=== PATIENT | female | born 1940 | race Caucasian/White ===

== ENCOUNTER 2020-09-29 22:35 | Emergency (ER) | payer MEDICARE, OTHER ==
[~2020-09-29] VITALS: Ht 157.5 cm; Wt 113.6 kg
[2020-09-29] MEDS ORDERED: ONDANSETRON HCL 4 MG/2 ML VIAL IVP ONE (23:45)
[2020-09-29] MEDS ORDERED: ACETAMINOPHEN 500 MG TABLET PO ONE (23:45)
[2020-09-29] MEDS ORDERED: 0.9% SODIUM CHLORIDE 10 ML SYRINGE IVP PRN (23:45)
[2020-09-30 00:28] LABS: APPEARANCE,URINE TURBID (CLEAR); BILIRUBIN,URINE NEGATIVE (NEGATIVE); GLUCOSE, URINE (UA) NEGATIVE (NEGATIVE); KETONES,URINE NEGATIVE (NEGATIVE); LEUKOCYTE ESTERASE ,URINE MODERATE (NEGATIVE); NITRATE,URINE NEGATIVE (NEGATIVE); OCCULT BLOOD,URINE NEGATIVE (NEGATIVE); PH,URINE 8.5 (5.0-8.0); PROTEIN,URINE SEE CONFIRM (NEGATIVE); UROBILINOGEN,URINE 0.2 mg/dL (<=1.0)
[2020-09-30 00:42] LABS: COVID AG,FIA SOURCE NASOPHARYNGEAL
[2020-09-30 00:48] LABS: BASOPHILS % (AUTO) 0.6 % (0.0-2.0); EOSINOPHILS % (AUTO) 0.8 % (1.0-6.0); HEMATOCRIT 35.8 % (36-46); HEMOGLOBIN 11.6 g/dL (12.0-16.0); LYMPHOCYTES # (AUTO) 1.2 K/uL (1.0-4.8); LYMPHOCYTES % (AUTO) 12.3 % (22.0-44.0); MEAN CORPUSCULAR HEMOGLOBIN 31.4 pg (26.0-34.0); MEAN CORPUSCULAR HGB CONC 32.3 G/dL (31.0-37.0); MEAN CORPUSCULAR VOLUME 97 fL (80-100); MONOCYTES # (AUTO) 0.5 K/uL (0.1-1.0); MONOCYTES % (AUTO) 4.7 % (2.0-9.0); NEUTROPHILS # (AUTO) 7.9 K/uL (1.8-7.7); NEUTROPHILS % (AUTO) 81.6 % (40.0-70.0); PLATELET COUNT (AUTO) 121 K/uL (150-450); RED BLOOD CELL COUNT(AUTO) 3.68 MIL/uL (4.00-5.20); RED CELL DISTRIBUTION WIDTH 16.6 % (11.5-14.5)
[2020-09-30 00:49] LABS: RBC,URINE None Seen /HPF (0-2); SULFOSALICYLIC ACID,URINE 4+ (Negative)
[2020-09-30 00:50] LABS: BACTERIA,URINE Many /HPF (None Seen); CALCIUM OXALATE CRYSTALS,UR Moderate /LPF (None Seen); SQUAMOUS EPITHELIAL CELL,UR Many /LPF (None Seen)
[2020-09-30 01:15] LABS: CALCIUM, TOTAL 9.1 mg/dL (8.8-10.5); CREATININE 2.89 mg/dL (0.60-1.30); POTASSIUM 4.7 mmol/L (3.5-5.1)
[2020-09-30 01:19] LABS: ALBUMIN 3.5 g/dL (3.4-5.0); BILIRUBIN,TOTAL 0.4 mg/dL (0.1-1.0); TOTAL PROTEIN, SERUM 7.6 g/dL (6.4-8.2)
[2020-09-30 01:22] LABS: LACTIC ACID 1.2 mmol/L (0.4-2.0)
[2020-09-30 01:34] LABS: INR 0.9 (0.9-1.1); PROTHROMBIN TIME 10.1 SEC (9.4-11.6)
[2020-09-30 01:37] VITALS: BP 146/68
[2020-09-30] MEDS ORDERED: DiphenhydrAMINE HCL 50 MG/ML VIAL IVP STA (01:45)
[2020-09-30] MEDS ORDERED: METOCLOPRAMIDE HCL 5 MG/ML 2 ML VIAL IVP ONE (01:45)
[2020-09-30] MEDS ORDERED: KETOROLAC TROMETHAMINE 30 MG/ML VIAL IVP ONE (01:45)
[2020-09-30] MEDS ORDERED: CEPHALEXIN MONOHYDRATE 500 MG CAPSULE PO ONE (02:00)
== END 2020-09-30 01:50 | disposition home or self-care (01) ==
LOC: EMS 22:35
DX: N39.0 Urinary tract infection, site not specified (principal); R79.1 Abnormal coagulation profile; R51.9 Headache, unspecified; Z20.822 Contact with and (suspected) exposure to COVID-19
CPT/HCPCS: 36415; 70450; 71045; 80053; 81001; 83605; 85025; 85610; 87040; 87077; 87086; 87186; 87205; 87426; 93005; 96374; 96375; 99285; J1200; J1885; J2405; J2765; 81002

== ENCOUNTER 2021-05-21 10:17 | Emergency (ER) | payer MEDICARE, OTHER ==
[~2021-05-21] VITALS: Ht 160 cm; Wt 106.2 kg
[~2021-05-21 10:17] MED LIST: AMLO2.5T96 PO; ASPI-1450 PO; BUME1TAB34 PO; ZINC113C10 TP
[2021-05-21 10:58] LABS: BASOPHILS % (AUTO) 1.4 % (0.0-2.0); HEMATOCRIT 40.2 % (36-46); HEMOGLOBIN 13.3 g/dL (12.0-16.0); LYMPHOCYTES # (AUTO) 1.1 K/uL (1.0-4.8); LYMPHOCYTES % (AUTO) 21.1 % (22.0-44.0); MEAN CORPUSCULAR VOLUME 100 fL (80-100); MONOCYTES # (AUTO) 0.4 K/uL (0.1-1.0); MONOCYTES % (AUTO) 6.7 % (2.0-9.0); NEUTROPHILS # (AUTO) 3.8 K/uL (1.8-7.7); NEUTROPHILS % (AUTO) 69.8 % (40.0-70.0); PLATELET COUNT (AUTO) 113 K/uL (150-450); RED BLOOD CELL COUNT(AUTO) 4.02 MIL/uL (4.00-5.20); RED CELL DISTRIBUTION WIDTH 18.8 % (11.5-14.5)
[2021-05-21 11:10] LABS: CALCIUM, TOTAL 9.6 mg/dL (8.8-10.5); CREATININE 3.76 mg/dL (0.60-1.30); POTASSIUM 4.4 mmol/L (3.5-5.1)
[2021-05-21 11:28] LABS: ALBUMIN 3.8 g/dL (3.4-5.0); BILIRUBIN,TOTAL 0.5 mg/dL (0.1-1.0); TOTAL PROTEIN, SERUM 7.9 g/dL (6.4-8.2)
[2021-05-21 16:30] VITALS: BP 117/56
== END 2021-05-21 17:01 | disposition home or self-care (01) ==
LOC: EMS 10:17
DX: R53.1 Weakness (principal); I13.2 Hypertensive heart and chronic kidney disease with heart failure and with stage 5 chronic kidney disease, or end stage renal disease; N18.6 End stage renal disease; I50.9 Heart failure, unspecified; Z99.2 Dependence on renal dialysis; Z79.899 Other long term (current) drug therapy
CPT/HCPCS: 71045; 80053; 84484; 85025; 93005; 99285; 36415-L1; 36415-TC

== ENCOUNTER 2021-08-14 10:10 | Inpatient (IN) | payer MEDICARE, OTHER ==
[2021-08-14] VITALS (11 sets, daily range): BP systolic 134–171; BP diastolic 60–90
[~2021-08-14] VITALS: Ht 154.9 cm; Wt 120.1 kg
[2021-08-14] MEDS ORDERED: ONDANSETRON HCL 4 MG/2 ML VIAL IVP PRN (10:45)
[2021-08-14 11:04] LABS: BASOPHILS % (AUTO) 0.6 % (0.0-2.0); EOSINOPHILS % (AUTO) 1.8 % (1.0-6.0); HEMATOCRIT 33.4 % (36-46); HEMOGLOBIN 11.2 g/dL (12.0-16.0); LYMPHOCYTES % (AUTO) 15.7 % (22.0-44.0); MEAN CORPUSCULAR HEMOGLOBIN 31.7 pg (26.0-34.0); MEAN CORPUSCULAR HGB CONC 33.5 G/dL (31.0-37.0); MEAN CORPUSCULAR VOLUME 95 fL (80-100); MONOCYTES # (AUTO) 0.6 K/uL (0.1-1.0); MONOCYTES % (AUTO) 9.8 % (2.0-9.0); NEUTROPHILS # (AUTO) 4.4 K/uL (1.8-7.7); NEUTROPHILS % (AUTO) 72.1 % (40.0-70.0); PLATELET COUNT (AUTO) 207 K/uL (150-450); RED BLOOD CELL COUNT(AUTO) 3.53 MIL/uL (4.00-5.20); RED CELL DISTRIBUTION WIDTH 16.4 % (11.5-14.5)
[2021-08-14 11:16] LABS: PROTHROMBIN TIME 10.3 SEC (9.4-11.6)
[2021-08-14 11:26] LABS: CREATININE 4.57 mg/dL (0.60-1.30)
[2021-08-14 11:30] LABS: ALBUMIN 3.3 g/dL (3.4-5.0); BILIRUBIN,TOTAL 0.6 mg/dL (0.1-1.0); TOTAL PROTEIN, SERUM 7.4 g/dL (6.4-8.2)
[2021-08-14] MEDS ORDERED: ASPIRIN 325 MG TABLET PO ONE (11:45)
[2021-08-14] MEDS ORDERED: HEPARIN SODIUM,PORCINE 1,000 UNITS/ML VIAL IVP ONE (12:00)
[2021-08-14 12:12] LABS: COVID AG,FIA SOURCE NASAL SWAB
[2021-08-14 12:43] LABS: INFLUENZA TYPE A NEGATIVE FOR TYPE A (NEGATIVE); INFLUENZA TYPE B NEGATIVE FOR TYPE B (NEGATIVE)
[2021-08-14] MEDS ORDERED: PNEUMOCOCCAL VACCINE POLYVALENT 0.5 ML VIAL [PPSV23] IM. ONE (14:45)
[2021-08-14] MEDS ORDERED: SODIUM CHLORIDE 0.9% 1,000 ML ONE (16:19)
[2021-08-14] MEDS: HEPARIN SODIUM,PORCINE 5,000 UNITS/ML VIAL SQ SCH ×2 (16:43→23:27)
[2021-08-14] MEDS: OxyCODONE HCL/ACETAMINOPHEN 5-325 MG TABLET PO PRN (18:25)
[2021-08-14] MEDS ORDERED: HEPARIN SODIUM,PORCINE 1,000 UNITS/ML VIAL IVCATH ONE ×2 (20:45)
[2021-08-14] MEDS: DOCUSATE SODIUM 100 MG CAPSULE PO SCH (21:00)
[2021-08-15 00:05] VITALS: BP 139/70
[2021-08-15 03:55] VITALS: BP 126/66
[2021-08-15 08:12] VITALS: BP 134/78
[2021-08-15] MEDS: FAMOTIDINE 20 MG TABLET PO SCH (09:38)
[2021-08-15] MEDS: OxyCODONE HCL/ACETAMINOPHEN 5-325 MG TABLET PO PRN (09:38)
[2021-08-15] MEDS: ASPIRIN 81 MG CHEWABLE TABLET PO SCH (09:38)
[2021-08-15] MEDS: VITAMIN B COMP/VIT C/FOLIC ACID CAPSULE PO SCH (09:38)
[2021-08-15] MEDS: AmLODIPine BESYLATE 5 MG TABLET PO SCH (09:38)
[2021-08-15] MEDS: DOCUSATE SODIUM 100 MG CAPSULE PO SCH ×2 (09:38→20:48)
[2021-08-15] MEDS: HEPARIN SODIUM,PORCINE 5,000 UNITS/ML VIAL SQ SCH ×3 (09:39→23:17)
[2021-08-15 11:59] VITALS: BP 130/81
[2021-08-15 15:36] VITALS: BP 147/76
[2021-08-15] MEDS: SEVELAMER CARBONATE 800 MG TABLET PO SCH (17:44)
[2021-08-15] MEDS: ACETAMINOPHEN 325 MG TABLET PO PRN (17:51)
[2021-08-15 20:45] VITALS: BP 124/78
[2021-08-16 01:01] VITALS: BP 135/76
[2021-08-16 05:34] VITALS: BP 159/98
[2021-08-16 08:19] VITALS: BP 146/96
[2021-08-16] MEDS: SEVELAMER CARBONATE 800 MG TABLET PO SCH ×3 (08:32→18:16)
[2021-08-16] MEDS: HEPARIN SODIUM,PORCINE 5,000 UNITS/ML VIAL SQ SCH ×2 (08:32→15:36)
[2021-08-16] MEDS: FAMOTIDINE 20 MG TABLET PO SCH (08:33)
[2021-08-16] MEDS: VITAMIN B COMP/VIT C/FOLIC ACID CAPSULE PO SCH (08:33)
[2021-08-16] MEDS: ASPIRIN 81 MG CHEWABLE TABLET PO SCH (08:33)
[2021-08-16] MEDS: AmLODIPine BESYLATE 5 MG TABLET PO SCH (08:33)
[2021-08-16] MEDS: DOCUSATE SODIUM 100 MG CAPSULE PO SCH (08:33)
[2021-08-16] MEDS: ACETAMINOPHEN 325 MG TABLET PO PRN ×2 (10:12→18:23)
[2021-08-16 11:24] VITALS: BP 160/77
[2021-08-16 11:52] VITALS: BP 112/90
[2021-08-16 17:04] VITALS: BP 131/77
== END 2021-08-16 19:50 | disposition home health service (06) | DRG 291 ==
LOC: EMS 10:13 → 5S 12:00
PROVIDERS: ADMIT Internal Medicine; ATTEND Internal Medicine
PROC: 5A1D70Z Performance of Urinary Filtration, Intermittent, Less than 6 Hours Per Day (ICD-10-PCS; principal; 2021-08-14)
PROC: 5A09357 Assistance with Respiratory Ventilation, Less than 24 Consecutive Hours, Continuous Positive Airway Pressure (ICD-10-PCS; 2021-08-15)
DX: I13.2 Hypertensive heart and chronic kidney disease with heart failure and with stage 5 chronic kidney disease, or end stage renal disease (principal); N18.6 End stage renal disease; Z68.43 Body mass index [BMI] 50.0-59.9, adult; E44.0 Moderate protein-calorie malnutrition; E66.2 Morbid (severe) obesity with alveolar hypoventilation; F44.4 Conversion disorder with motor symptom or deficit; Z20.822 Contact with and (suspected) exposure to COVID-19; E21.3 Hyperparathyroidism, unspecified; I50.9 Heart failure, unspecified; D63.1 Anemia in chronic kidney disease; Z28.310 Unvaccinated for COVID-19; Z99.2 Dependence on renal dialysis; Z95.3 Presence of xenogenic heart valve; Z90.710 Acquired absence of both cervix and uterus; Z79.899 Other long term (current) drug therapy
CPT/HCPCS: 71045; 80053; 83605; 83880; 84484; 85025; 85610; 85730; 87081; 87340; 87804; 90935; 93005; 94660; 99285; G0378; J1644; J7030

== ENCOUNTER 2021-11-30 09:39 | Emergency (ER) | payer MEDICARE, OTHER ==
[~2021-11-30] VITALS: Ht 157.5 cm; Wt 135.2 kg
[2021-11-30 10:30] LABS: EOSINOPHILS % (AUTO) 2.8 % (1.0-6.0); HEMATOCRIT 34.3 % (36-46); HEMOGLOBIN 11.5 g/dL (12.0-16.0); LYMPHOCYTES # (AUTO) 0.8 K/uL (1.0-4.8); LYMPHOCYTES % (AUTO) 13.5 % (22.0-44.0); MEAN CORPUSCULAR HEMOGLOBIN 31.4 pg (26.0-34.0); MEAN CORPUSCULAR HGB CONC 33.5 G/dL (31.0-37.0); MEAN CORPUSCULAR VOLUME 94 fL (80-100); MONOCYTES # (AUTO) 0.4 K/uL (0.1-1.0); MONOCYTES % (AUTO) 6.9 % (2.0-9.0); NEUTROPHILS # (AUTO) 4.7 K/uL (1.8-7.7); NEUTROPHILS % (AUTO) 75.8 % (40.0-70.0); PLATELET COUNT (AUTO) 192 K/uL (150-450); RED BLOOD CELL COUNT(AUTO) 3.66 MIL/uL (4.00-5.20); RED CELL DISTRIBUTION WIDTH 16.9 % (11.5-14.5)
[2021-11-30 10:40] LABS: CREATININE 5.6 mg/dL (0.60-1.30); POTASSIUM 5.3 mmol/L (3.5-5.1)
[2021-11-30] MEDS ORDERED: LEVO25TA9 PO (10:56)
[2021-11-30] MEDS ORDERED: FURO40TA5 PO (10:56)
[2021-11-30] MEDS ORDERED: METO-558 PO (10:56)
[2021-11-30] MEDS ORDERED: AMLO10TA55 PO (10:56)
[2021-11-30] MEDS ORDERED: ROPI0.257 PO (10:56)
[2021-11-30] MEDS ORDERED: METO25XL PO (10:56)
[2021-11-30] MEDS ORDERED: ALLO100T PO (10:56)
[2021-11-30] MEDS ORDERED: VENL-66 PO (10:56)
[2021-11-30] MEDS ORDERED: OMEP20CA13 PO (10:56)
[2021-11-30] MEDS ORDERED: POTA8TAB72 PO (10:56)
[2021-11-30] MEDS ORDERED: GABA-1181 PO (10:56)
[2021-11-30 12:30] VITALS: BP 111/71
== END 2021-11-30 14:02 | disposition home or self-care (01) ==
LOC: EMS 09:40
DX: N18.6 End stage renal disease (principal); I11.0 Hypertensive heart disease with heart failure; I50.9 Heart failure, unspecified; Z90.710 Acquired absence of both cervix and uterus; Z99.2 Dependence on renal dialysis
CPT/HCPCS: 71045; 80048; 85025; 99284; 36415-L1; 36415-TC

== ENCOUNTER 2021-12-04 11:32 | Inpatient (IN) | payer MEDICARE, OTHER ==
[2021-12-04] VITALS (8 sets, daily range): BP systolic 117–158; BP diastolic 58–81
[~2021-12-04] VITALS: Ht 157.5 cm; Wt 135.2 kg
[~2021-12-04 11:32] MED LIST changes: +ALLO100T PO; +AMLO10TA55 PO; +FURO40TA5 PO; +GABA-1181 PO; +LEVO25TA9 PO; +METO-558 PO; +METO25XL PO; +OMEP20CA13 PO; +POTA8TAB72 PO; +ROPI0.257 PO; +VENL-66 PO
[2021-12-04 12:43] LABS: BASOPHILS % (AUTO) 0.9 % (0.0-2.0); EOSINOPHILS % (AUTO) 3.5 % (1.0-6.0); HEMATOCRIT 35.1 % (36-46); HEMOGLOBIN 11.5 g/dL (12.0-16.0); LYMPHOCYTES % (AUTO) 15.6 % (22.0-44.0); MEAN CORPUSCULAR HEMOGLOBIN 31.3 pg (26.0-34.0); MEAN CORPUSCULAR HGB CONC 32.9 G/dL (31.0-37.0); MEAN CORPUSCULAR VOLUME 95 fL (80-100); MONOCYTES # (AUTO) 0.3 K/uL (0.1-1.0); MONOCYTES % (AUTO) 5.5 % (2.0-9.0); NEUTROPHILS # (AUTO) 4.7 K/uL (1.8-7.7); NEUTROPHILS % (AUTO) 74.5 % (40.0-70.0); PLATELET COUNT (AUTO) 212 K/uL (150-450); RED BLOOD CELL COUNT(AUTO) 3.69 MIL/uL (4.00-5.20)
[2021-12-04 13:03] LABS: CALCIUM, TOTAL 8.9 mg/dL (8.8-10.5); CREATININE 6.98 mg/dL (0.60-1.30); POTASSIUM 5.8 mmol/L (3.5-5.1)
[2021-12-04 13:09] LABS: ALBUMIN 3.4 g/dL (3.4-5.0); BILIRUBIN,TOTAL 0.4 mg/dL (0.1-1.0); TOTAL PROTEIN, SERUM 7.3 g/dL (6.4-8.2)
[2021-12-04] MEDS ORDERED: DEXTROSE 50%-WATER 25 GM/50 ML SYRINGE IVP ONE (13:15)
[2021-12-04] MEDS ORDERED: SODIUM ZIRCONIUM CYCLOSILICATE 5 GM POWDER PACKET PO ONE (13:15)
[2021-12-04] MEDS ORDERED: CALCIUM GLUCONATE 100 MG/ML 10 ML IVP ONE (13:15)
[2021-12-04] MEDS ORDERED: INSULIN REGULAR, HUMAN 100 UNITS/ML IVP ONE (13:15)
[2021-12-04 13:25] LABS: PROTHROMBIN TIME 10.3 SEC (9.4-11.6)
[2021-12-04] MEDS ORDERED: FUROSEMIDE 40 MG/4 ML VIAL IVP ONE (13:30)
[2021-12-04 15:02] LABS: COVID AG,FIA SOURCE NASAL SWAB
[2021-12-04 15:11] LABS: GLUCOMETER DEV NAME(LOC) ERT.5; GLUCOSE,POINT OF CARE 108 MG/DL (70-110)
[2021-12-04 15:33] LABS: APPEARANCE,URINE HAZY (CLEAR); BILIRUBIN,URINE NEGATIVE (NEGATIVE); GLUCOSE, URINE (UA) 70-100 mg/dL (NEGATIVE); KETONES,URINE NEGATIVE (NEGATIVE); LEUKOCYTE ESTERASE ,URINE LARGE (NEGATIVE); NITRATE,URINE NEGATIVE (NEGATIVE); OCCULT BLOOD,URINE TRACE (NEGATIVE); PH,URINE 7.5 (5.0-8.0); PROTEIN,URINE 30-70 mg/dL (NEGATIVE); SPECIFIC GRAVITIY, URINE 1.013 (1.003-1.030); UROBILINOGEN,URINE <=1.0 mg/dL (<=1.0)
[2021-12-04 15:35] LABS: BACTERIA,URINE Many /HPF (None Seen); SQUAMOUS EPITHELIAL CELL,UR Few /LPF (None Seen)
[2021-12-04] MEDS ORDERED: CefTRIAXone 1 GM/DEXTROSE 50 ML IV ONE (16:45)
[2021-12-04 17:23] LABS: CALCIUM, TOTAL 9.1 mg/dL (8.8-10.5); CREATININE 7.08 mg/dL (0.60-1.30); POTASSIUM 5.5 mmol/L (3.5-5.1)
[2021-12-05] VITALS (7 sets, daily range): BP systolic 111–154; BP diastolic 59–78
[2021-12-05] MEDS ORDERED: IPRATROPIUM BROMIDE 0.5 MG/2.5 ML NEB SOLUTION NEB PRN (03:30)
[2021-12-05] MEDS ORDERED: BISACODYL 10 MG RECTAL RECTAL SUPPOSITORY PR PRN (03:30)
[2021-12-05] MEDS ORDERED: MORPHINE SULFATE 2 MG/ML SYRINGE IVP PRN (03:30)
[2021-12-05] MEDS ORDERED: ONDANSETRON HCL 4 MG/2 ML VIAL IVP PRN (03:30)
[2021-12-05] MEDS ORDERED: ZOLPIDEM TARTRATE 5 MG TABLET PO PRN (03:30)
[2021-12-05] MEDS ORDERED: ACETAMINOPHEN 325 MG TABLET PO PRN (03:30)
[2021-12-05] MEDS ORDERED: HYDROCODONE/ACETAMINOPHEN 5-325 MG TABLET PO PRN (03:30)
[2021-12-05] MEDS ORDERED: ALBUTEROL SULFATE 2.5 MG/0.5 ML NEB SOLUTION NEB PRN (03:30)
[2021-12-05] MEDS ORDERED: MAGNESIUM HYDROXIDE SUSPENSION 30 ML UDCUP PO PRN (03:30)
[2021-12-05] MEDS ORDERED: LEVOTHYROXINE SODIUM 25 MCG TABLET PO SCH (06:30)
[2021-12-05 07:21] LABS: EOSINOPHILS % (AUTO) 3.6 % (1.0-6.0); HEMATOCRIT 32.3 % (36-46); HEMOGLOBIN 10.7 g/dL (12.0-16.0); LYMPHOCYTES # (AUTO) 0.9 K/uL (1.0-4.8); LYMPHOCYTES % (AUTO) 14.7 % (22.0-44.0); MEAN CORPUSCULAR HEMOGLOBIN 31.4 pg (26.0-34.0); MEAN CORPUSCULAR HGB CONC 33.1 G/dL (31.0-37.0); MEAN CORPUSCULAR VOLUME 95 fL (80-100); MONOCYTES # (AUTO) 0.4 K/uL (0.1-1.0); MONOCYTES % (AUTO) 6.3 % (2.0-9.0); NEUTROPHILS # (AUTO) 4.4 K/uL (1.8-7.7); NEUTROPHILS % (AUTO) 74.4 % (40.0-70.0); PLATELET COUNT (AUTO) 184 K/uL (150-450); RED BLOOD CELL COUNT(AUTO) 3.42 MIL/uL (4.00-5.20); RED CELL DISTRIBUTION WIDTH 16.7 % (11.5-14.5)
[2021-12-05 07:46] LABS: CALCIUM, TOTAL 8.7 mg/dL (8.8-10.5); CREATININE 4.41 mg/dL (0.60-1.30); POTASSIUM 4.4 mmol/L (3.5-5.1)
[2021-12-05] MEDS: HEPARIN SODIUM,PORCINE 5,000 UNITS/ML VIAL SQ SCH ×2 (08:37→17:08)
[2021-12-05] MEDS ORDERED: DOCUSATE SODIUM 100 MG CAPSULE PO SCH (09:00)
[2021-12-05] MEDS ORDERED: PANTOPRAZOLE SODIUM 40 MG/VIAL IVP SCH (09:00)
[2021-12-05] MEDS ORDERED: ALLOPURINOL 100 MG TABLET PO SCH (09:00)
[2021-12-05] MEDS: SEVELAMER CARBONATE 800 MG TABLET PO SCH ×2 (11:18→17:09)
[2021-12-05] MEDS ORDERED: HEPARIN SODIUM,PORCINE 1,000 UNITS/ML VIAL IVP ONE (16:12)
[2021-12-06] MEDS ORDERED: EPOETIN ALFA 10,000 UNITS/ML 2 ML VIAL SQ SCH (09:00)
== END 2021-12-05 19:05 | disposition home or self-care (01) | DRG 640 ==
LOC: EMS 11:33 → 5S 18:49
PROVIDERS: ADMIT Hospitalist; ATTEND Hospitalist
PROC: 5A1D70Z Performance of Urinary Filtration, Intermittent, Less than 6 Hours Per Day (ICD-10-PCS; principal; 2021-12-04)
DX: E87.5 Hyperkalemia (principal); N18.6 End stage renal disease; I13.2 Hypertensive heart and chronic kidney disease with heart failure and with stage 5 chronic kidney disease, or end stage renal disease; Z68.43 Body mass index [BMI] 50.0-59.9, adult; G47.33 Obstructive sleep apnea (adult) (pediatric); D63.1 Anemia in chronic kidney disease; E78.5 Hyperlipidemia, unspecified; E66.01 Morbid (severe) obesity due to excess calories; I35.0 Nonrheumatic aortic (valve) stenosis; Z20.822 Contact with and (suspected) exposure to COVID-19; I50.9 Heart failure, unspecified; Z90.710 Acquired absence of both cervix and uterus; Z95.2 Presence of prosthetic heart valve; Z99.2 Dependence on renal dialysis
CPT/HCPCS: 71045; 80048; 80053; 81001; 82962; 83735; 83880; 84484; 85025; 85610; 85730; 87081; 87086; 87340; 90935; 93005; 99291; C9113; J0610; J0696; J0885; J1644; J1815; J1940; Q9967; 36415-L1; 36415-TC

== ENCOUNTER 2021-12-09 10:09 | Inpatient (IN) | payer MEDICARE, OTHER ==
[~2021-12-09] VITALS: Ht 157.5 cm; Wt 132.0 kg
[2021-12-09] VITALS (10 sets, daily range): BP systolic 108–148; BP diastolic 48–97
[~2021-12-09 10:09] MED LIST changes: -AMLO2.5T96 PO; -BUME1TAB34 PO; -METO25XL PO
[2021-12-09 11:03] LABS: COVID AG,FIA SOURCE NASAL SWAB
[2021-12-09 11:18] LABS: BASOPHILS % (AUTO) 0.9 % (0.0-2.0); EOSINOPHILS % (AUTO) 3.7 % (1.0-6.0); HEMATOCRIT 32.4 % (36-46); HEMOGLOBIN 10.8 g/dL (12.0-16.0); MEAN CORPUSCULAR HEMOGLOBIN 31.1 pg (26.0-34.0); MEAN CORPUSCULAR HGB CONC 33.4 G/dL (31.0-37.0); MEAN CORPUSCULAR VOLUME 93 fL (80-100); MONOCYTES # (AUTO) 0.5 K/uL (0.1-1.0); MONOCYTES % (AUTO) 5.7 % (2.0-9.0); NEUTROPHILS # (AUTO) 6.1 K/uL (1.8-7.7); NEUTROPHILS % (AUTO) 76.7 % (40.0-70.0); PLATELET COUNT (AUTO) 180 K/uL (150-450); RED BLOOD CELL COUNT(AUTO) 3.47 MIL/uL (4.00-5.20); RED CELL DISTRIBUTION WIDTH 16.7 % (11.5-14.5)
[2021-12-09 11:45] LABS: CREATININE 6.42 mg/dL (0.60-1.30)
[2021-12-09 11:49] LABS: ALBUMIN 3.2 g/dL (3.4-5.0); BILIRUBIN,TOTAL 0.3 mg/dL (0.1-1.0)
[2021-12-09] MEDS ORDERED: BISACODYL 10 MG RECTAL RECTAL SUPPOSITORY PR PRN (15:15)
[2021-12-09] MEDS ORDERED: HYDROCODONE/ACETAMINOPHEN 5-325 MG TABLET PO PRN (15:15)
[2021-12-09] MEDS ORDERED: ONDANSETRON HCL 4 MG/2 ML VIAL IVP PRN (15:15)
[2021-12-09] MEDS ORDERED: MAGNESIUM HYDROXIDE SUSPENSION 30 ML UDCUP PO PRN (15:15)
[2021-12-09] MEDS ORDERED: ZOLPIDEM TARTRATE 5 MG TABLET PO PRN (15:15)
[2021-12-09] MEDS ORDERED: MORPHINE SULFATE 2 MG/ML SYRINGE IVP PRN (15:15)
[2021-12-09] MEDS: HEPARIN SODIUM,PORCINE 5,000 UNITS/ML VIAL SQ SCH (16:00)
[2021-12-09] MEDS: GABAPENTIN 300 MG CAPSULE PO SCH (16:00)
[2021-12-09] MEDS ORDERED: SODIUM CHLORIDE 0.9% 2,000 ML ONE (18:56)
[2021-12-10] VITALS: BP 136/60
[2021-12-10] MEDS: GABAPENTIN 300 MG CAPSULE PO SCH ×2 (00:04→08:09)
[2021-12-10] MEDS: ROPINIRole HCL 0.25 MG TABLET PO SCH ×2 (00:04→22:04)
[2021-12-10] MEDS: HEPARIN SODIUM,PORCINE 5,000 UNITS/ML VIAL SQ SCH ×3 (00:04→16:00)
[2021-12-10] MEDS: DOCUSATE SODIUM 100 MG CAPSULE PO SCH ×3 (00:04→20:45)
[2021-12-10] MEDS ORDERED: HEPARIN SODIUM,PORCINE 1,000 UNITS/ML VIAL IVCATH ONE ×2 (00:15)
[2021-12-10 04:28] VITALS: BP 149/76
[2021-12-10] MEDS: LEVOTHYROXINE SODIUM 25 MCG TABLET PO SCH (05:56)
[2021-12-10 07:50] VITALS: BP 119/68
[2021-12-10] MEDS: ASPIRIN 81 MG CHEWABLE TABLET PO SCH (08:09)
[2021-12-10] MEDS: ALLOPURINOL 100 MG TABLET PO SCH (08:09)
[2021-12-10] MEDS: PANTOPRAZOLE SODIUM 40 MG DR TABLET PO SCH (08:09)
[2021-12-10] MEDS: METOPROLOL SUCCINATE 50 MG ER TABLET PO SCH (08:09)
[2021-12-10] MEDS: ACETAMINOPHEN 325 MG TABLET PO PRN (08:09)
[2021-12-10] MEDS: VENLAFAXINE HCL 37.5 MG ER CAPSULE PO SCH (08:09)
[2021-12-10] MEDS: FUROSEMIDE 40 MG TABLET PO SCH (08:09)
[2021-12-10] MEDS: AmLODIPine BESYLATE 10 MG TABLET PO SCH (09:00)
[2021-12-10 11:11] VITALS: BP 137/84
[2021-12-10 16:20] VITALS: BP 162/72
[2021-12-10] MEDS ORDERED: HEPARIN SODIUM,PORCINE 1,000 UNITS/ML VIAL IVP ONE (16:54)
[2021-12-10 20:10] VITALS: BP 130/89
[2021-12-11] VITALS (15 sets, daily range): BP systolic 119–174; BP diastolic 58–112
[2021-12-11] MEDS: HEPARIN SODIUM,PORCINE 5,000 UNITS/ML VIAL SQ SCH ×2 (00:39→08:00)
[2021-12-11] MEDS: LEVOTHYROXINE SODIUM 25 MCG TABLET PO SCH (06:35)
[2021-12-11] MEDS: AmLODIPine BESYLATE 10 MG TABLET PO SCH (09:00)
[2021-12-11] MEDS: DOCUSATE SODIUM 100 MG CAPSULE PO SCH ×2 (09:00→20:53)
[2021-12-11] MEDS: METOPROLOL SUCCINATE 50 MG ER TABLET PO SCH (09:00)
[2021-12-11] MEDS: FUROSEMIDE 40 MG TABLET PO SCH (14:10)
[2021-12-11] MEDS: ALLOPURINOL 100 MG TABLET PO SCH (14:10)
[2021-12-11] MEDS: ASPIRIN 81 MG CHEWABLE TABLET PO SCH (14:10)
[2021-12-11] MEDS: VENLAFAXINE HCL 37.5 MG ER CAPSULE PO SCH (14:11)
[2021-12-11] MEDS: EPOETIN ALFA 10,000 UNITS/ML 2 ML VIAL SQ SCH (14:11)
[2021-12-11] MEDS: ACETAMINOPHEN 325 MG TABLET PO PRN (14:11)
[2021-12-11] MEDS: GABAPENTIN 300 MG CAPSULE PO SCH (14:11)
[2021-12-11] MEDS: PANTOPRAZOLE SODIUM 40 MG DR TABLET PO SCH (14:13)
[2021-12-11] MEDS ORDERED: SODIUM CHLORIDE 0.9% 2,000 ML ONE (15:47)
[2021-12-11] MEDS ORDERED: HEPARIN SODIUM,PORCINE 1,000 UNITS/ML VIAL IVCATH ONE ×2 (16:30)
[2021-12-11] MEDS: ROPINIRole HCL 0.25 MG TABLET PO SCH (20:53)
[2021-12-12] MEDS: LEVOTHYROXINE SODIUM 25 MCG TABLET PO SCH (05:57)
[2021-12-12 07:57] VITALS: BP 145/69
[2021-12-12] MEDS: METOPROLOL SUCCINATE 50 MG ER TABLET PO SCH (08:54)
[2021-12-12] MEDS: GABAPENTIN 300 MG CAPSULE PO SCH (08:54)
[2021-12-12] MEDS: AmLODIPine BESYLATE 10 MG TABLET PO SCH (08:54)
[2021-12-12] MEDS: DOCUSATE SODIUM 100 MG CAPSULE PO SCH ×2 (08:54→20:04)
[2021-12-12] MEDS: FUROSEMIDE 40 MG TABLET PO SCH (08:54)
[2021-12-12] MEDS: ALLOPURINOL 100 MG TABLET PO SCH (08:54)
[2021-12-12] MEDS: VENLAFAXINE HCL 37.5 MG ER CAPSULE PO SCH (08:54)
[2021-12-12] MEDS: ASPIRIN 81 MG CHEWABLE TABLET PO SCH (08:55)
[2021-12-12] MEDS: PANTOPRAZOLE SODIUM 40 MG DR TABLET PO SCH (08:55)
[2021-12-12] MEDS: HEPARIN SODIUM,PORCINE 5,000 UNITS/ML VIAL SQ SCH ×4 (08:58→23:40)
[2021-12-12 11:36] VITALS: BP 131/66
[2021-12-12 16:03] VITALS: BP 120/92
[2021-12-12 19:36] VITALS: BP 133/78
[2021-12-12] MEDS: ROPINIRole HCL 0.25 MG TABLET PO SCH (20:04)
[2021-12-12 23:35] VITALS: BP 130/56
[2021-12-13 04:52] VITALS: BP 115/78
[2021-12-13] MEDS: LEVOTHYROXINE SODIUM 25 MCG TABLET PO SCH (05:48)
[2021-12-13 07:37] VITALS: BP 135/75
[2021-12-13] MEDS: DOCUSATE SODIUM 100 MG CAPSULE PO SCH ×2 (08:46→20:32)
[2021-12-13] MEDS: AmLODIPine BESYLATE 10 MG TABLET PO SCH (08:46)
[2021-12-13] MEDS: HEPARIN SODIUM,PORCINE 5,000 UNITS/ML VIAL SQ SCH ×2 (08:46→15:32)
[2021-12-13] MEDS: ASPIRIN 81 MG CHEWABLE TABLET PO SCH (08:46)
[2021-12-13] MEDS: GABAPENTIN 300 MG CAPSULE PO SCH (08:46)
[2021-12-13] MEDS: PANTOPRAZOLE SODIUM 40 MG DR TABLET PO SCH (08:46)
[2021-12-13] MEDS: FUROSEMIDE 40 MG TABLET PO SCH (08:46)
[2021-12-13] MEDS: ALLOPURINOL 100 MG TABLET PO SCH (08:46)
[2021-12-13] MEDS: VENLAFAXINE HCL 37.5 MG ER CAPSULE PO SCH (08:46)
[2021-12-13] MEDS: METOPROLOL SUCCINATE 50 MG ER TABLET PO SCH (08:47)
[2021-12-13 11:08] VITALS: BP 158/118
[2021-12-13 15:45] VITALS: BP 124/48
[2021-12-13 20:04] VITALS: BP 140/59
[2021-12-13] MEDS: ROPINIRole HCL 0.25 MG TABLET PO SCH (20:32)
[2021-12-14] VITALS (7 sets, daily range): BP systolic 115–146; BP diastolic 50–85
[2021-12-14] MEDS: HEPARIN SODIUM,PORCINE 5,000 UNITS/ML VIAL SQ SCH ×3 (00:26→17:05)
[2021-12-14] MEDS: LEVOTHYROXINE SODIUM 25 MCG TABLET PO SCH (05:28)
[2021-12-14] MEDS: METOPROLOL SUCCINATE 50 MG ER TABLET PO SCH (08:47)
[2021-12-14] MEDS: AmLODIPine BESYLATE 10 MG TABLET PO SCH (08:48)
[2021-12-14] MEDS: VENLAFAXINE HCL 37.5 MG ER CAPSULE PO SCH (08:48)
[2021-12-14] MEDS: ASPIRIN 81 MG CHEWABLE TABLET PO SCH (08:48)
[2021-12-14] MEDS: PANTOPRAZOLE SODIUM 40 MG DR TABLET PO SCH (08:49)
[2021-12-14] MEDS: DOCUSATE SODIUM 100 MG CAPSULE PO SCH ×2 (08:49→20:50)
[2021-12-14] MEDS: GABAPENTIN 300 MG CAPSULE PO SCH (08:49)
[2021-12-14] MEDS: FUROSEMIDE 40 MG TABLET PO SCH (08:49)
[2021-12-14] MEDS: ALLOPURINOL 100 MG TABLET PO SCH (08:49)
[2021-12-14] MEDS: EPOETIN ALFA 10,000 UNITS/ML 2 ML VIAL SQ SCH (08:50)
[2021-12-14] MEDS: ROPINIRole HCL 0.25 MG TABLET PO SCH (20:50)
[2021-12-15] VITALS (14 sets, daily range): BP systolic 100–145; BP diastolic 40–79
[2021-12-15] MEDS: LEVOTHYROXINE SODIUM 25 MCG TABLET PO SCH (05:58)
[2021-12-15] MEDS: ASPIRIN 81 MG CHEWABLE TABLET PO SCH (08:56)
[2021-12-15] MEDS: VENLAFAXINE HCL 37.5 MG ER CAPSULE PO SCH (08:57)
[2021-12-15] MEDS: AmLODIPine BESYLATE 10 MG TABLET PO SCH (08:57)
[2021-12-15] MEDS: FUROSEMIDE 40 MG TABLET PO SCH (08:57)
[2021-12-15] MEDS: METOPROLOL SUCCINATE 50 MG ER TABLET PO SCH (08:58)
[2021-12-15] MEDS: PANTOPRAZOLE SODIUM 40 MG DR TABLET PO SCH (08:58)
[2021-12-15] MEDS: ALLOPURINOL 100 MG TABLET PO SCH (08:58)
[2021-12-15] MEDS: GABAPENTIN 300 MG CAPSULE PO SCH (08:59)
[2021-12-15] MEDS: DOCUSATE SODIUM 100 MG CAPSULE PO SCH (08:59)
[2021-12-15] MEDS: HEPARIN SODIUM,PORCINE 5,000 UNITS/ML VIAL SQ SCH ×3 (09:00→16:00)
[2021-12-15] MEDS ORDERED: HEPARIN SODIUM,PORCINE 1,000 UNITS/ML VIAL IVP ONE (12:00)
== END 2021-12-15 21:15 | disposition home or self-care (01) | DRG 291 ==
LOC: EMS 10:19 → 5S 15:47
PROVIDERS: ADMIT Internal Medicine; ATTEND Internal Medicine
PROC: 5A1D70Z Performance of Urinary Filtration, Intermittent, Less than 6 Hours Per Day (ICD-10-PCS; principal; 2021-12-09)
PROC: 5A1D70Z Performance of Urinary Filtration, Intermittent, Less than 6 Hours Per Day (ICD-10-PCS; 2021-12-11)
DX: I13.2 Hypertensive heart and chronic kidney disease with heart failure and with stage 5 chronic kidney disease, or end stage renal disease (principal); N18.6 End stage renal disease; N17.9 Acute kidney failure, unspecified; N25.81 Secondary hyperparathyroidism of renal origin; Z68.43 Body mass index [BMI] 50.0-59.9, adult; E87.5 Hyperkalemia; D63.1 Anemia in chronic kidney disease; E03.9 Hypothyroidism, unspecified; E78.5 Hyperlipidemia, unspecified; I35.0 Nonrheumatic aortic (valve) stenosis; I50.9 Heart failure, unspecified; Z20.822 Contact with and (suspected) exposure to COVID-19; E66.01 Morbid (severe) obesity due to excess calories; M10.9 Gout, unspecified; Z79.82 Long term (current) use of aspirin; Z90.710 Acquired absence of both cervix and uterus; Z95.2 Presence of prosthetic heart valve; Z99.2 Dependence on renal dialysis; Z79.899 Other long term (current) drug therapy
CPT/HCPCS: 80053; 85025; 87081; 87340; 90935; 99285; J0885; J1644; J7030

== ENCOUNTER 2022-09-27 14:04 | Emergency (ER) | payer MEDICARE, OTHER ==
[~2022-09-27] VITALS: Ht 157.5 cm; Wt 119.3 kg
[~2022-09-27 14:04] MED LIST changes: +FOLI0.8T2 PO; -FURO40TA5 PO; -POTA8TAB72 PO; +SEVE800T17 PO; -ZINC113C10 TP
[2022-09-27 16:03] VITALS: TEMP 97.6
[2022-09-27] MEDS ORDERED: SENN-376 PO (16:06)
[2022-09-27] MEDS ORDERED: TRAM-559 PO (16:06)
[2022-09-27] MEDS ORDERED: NYST15CR41 TP (16:06)
[2022-09-27] MEDS ORDERED: MECLIZINE HCL 25 MG TABLET PO ONE (16:15)
[2022-09-27] MEDS ORDERED: ONDANSETRON HCL 4 MG TABLET PO ONE (16:15)
[2022-09-27 16:36] LABS: BASOPHILS % (AUTO) 0.6 % (0.0-2.0); EOSINOPHILS % (AUTO) 1.4 % (1.0-6.0); HEMATOCRIT 32.6 % (36-46); HEMOGLOBIN 10.7 g/dL (12.0-16.0); MEAN CORPUSCULAR HGB CONC 32.9 G/dL (31.0-37.0); MEAN CORPUSCULAR VOLUME 97 fL (80-100); MONOCYTES # (AUTO) 0.4 K/uL (0.1-1.0); MONOCYTES % (AUTO) 5.5 % (2.0-9.0); NEUTROPHILS # (AUTO) 4.9 K/uL (1.8-7.7); NEUTROPHILS % (AUTO) 77.5 % (40.0-70.0); PLATELET COUNT (AUTO) 176 K/uL (150-450); RED BLOOD CELL COUNT(AUTO) 3.35 MIL/uL (4.00-5.20); RED CELL DISTRIBUTION WIDTH 15.3 % (11.5-14.5)
[2022-09-27 16:41] LABS: CALCIUM, TOTAL 8.6 mg/dL (8.8-10.5); CREATININE 4.22 mg/dL (0.60-1.30); POTASSIUM 4.2 mmol/L (3.5-5.1)
[2022-09-27 16:47] LABS: ALBUMIN 3.1 g/dL (3.4-5.0); BILIRUBIN,TOTAL 0.3 mg/dL (0.1-1.0)
[2022-09-27 21:00] VITALS: BP 116/71; PULSE 53; RESP 17
== END 2022-09-27 21:00 | disposition home or self-care (01) ==
LOC: EMS 14:19
DX: R42 Dizziness and giddiness (principal); E11.22 Type 2 diabetes mellitus with diabetic chronic kidney disease; I13.2 Hypertensive heart and chronic kidney disease with heart failure and with stage 5 chronic kidney disease, or end stage renal disease; N18.6 End stage renal disease; R11.10 Vomiting, unspecified; R19.7 Diarrhea, unspecified; Z90.710 Acquired absence of both cervix and uterus; Z99.2 Dependence on renal dialysis
CPT/HCPCS: 99285; 70450; 71045; 80053; 85025; 36415; 93005; Q0162

== ENCOUNTER 2022-11-29 14:57 | Emergency (ER) | payer MEDICARE, OTHER ==
[~2022-11-29] VITALS: Ht 154.9 cm; Wt 107.5 kg
[~2022-11-29 14:57] MED LIST changes: +NYST15CR41 TP; +ROPI PO; -ROPI0.257 PO; +SENN-376 PO; +TRAM-559 PO
[2022-11-29 15:50] VITALS: TEMP 97.9
[2022-11-29 16:59] LABS: BASOPHILS % (AUTO) 0.5 % (0.0-2.0); EOSINOPHILS % (AUTO) 1.3 % (1.0-6.0); HEMATOCRIT 35.1 % (36-46); HEMOGLOBIN 11.4 g/dL (12.0-16.0); LYMPHOCYTES # (AUTO) 0.7 K/uL (1.0-4.8); LYMPHOCYTES % (AUTO) 7.7 % (22.0-44.0); MEAN CORPUSCULAR HEMOGLOBIN 31.8 pg (26.0-34.0); MEAN CORPUSCULAR HGB CONC 32.6 G/dL (31.0-37.0); MEAN CORPUSCULAR VOLUME 98 fL (80-100); MONOCYTES # (AUTO) 0.3 K/uL (0.1-1.0); MONOCYTES % (AUTO) 2.9 % (2.0-9.0); NEUTROPHILS # (AUTO) 7.8 K/uL (1.8-7.7); PLATELET COUNT (AUTO) 189 K/uL (150-450); RED CELL DISTRIBUTION WIDTH 15.4 % (11.5-14.5)
[2022-11-29 17:02] LABS: NEUTROPHILS % (AUTO) 87.6 % (40.0-70.0)
[2022-11-29 17:04] LABS: CREATININE 4.61 mg/dL (0.60-1.30); POTASSIUM 3.9 mmol/L (3.5-5.1)
[2022-11-29 18:02] LABS: COVID AG,FIA SOURCE NASOPHARYNGEAL
[2022-11-29 18:21] VITALS: BP 110/68; PULSE 70; RESP 20
[2022-11-29] MEDS ORDERED: ACETAMINOPHEN 325 MG TABLET PO ONE (18:30)
== END 2022-11-30 00:34 | disposition home or self-care (01) ==
LOC: EMS 15:02
DX: I13.2 Hypertensive heart and chronic kidney disease with heart failure and with stage 5 chronic kidney disease, or end stage renal disease (principal); E11.22 Type 2 diabetes mellitus with diabetic chronic kidney disease; N18.6 End stage renal disease; R11.2 Nausea with vomiting, unspecified; R53.1 Weakness; J44.9 Chronic obstructive pulmonary disease, unspecified; Z90.710 Acquired absence of both cervix and uterus; Z99.2 Dependence on renal dialysis; Z20.822 Contact with and (suspected) exposure to COVID-19
CPT/HCPCS: 71045; 80048; 85025; 93005; 99285; 36415-L1; 36415-TC

== ENCOUNTER 2023-01-11 23:47 | Inpatient (IN) | payer MEDICARE, OTHER ==
[~2023-01-11] VITALS: Ht 160 cm; Wt 122.0 kg
[2023-01-12] VITALS (7 sets, daily range): BP systolic 95–143; BP diastolic 50–115; PULSE 66–108; RESP 18–20; TEMP 97.5–100.9
[2023-01-12] MEDS ORDERED: 0.9% SODIUM CHLORIDE 10 ML SYRINGE IVP PRN (00:30)
[2023-01-12] MEDS ORDERED: SODIUM CHLORIDE 0.9% 1,550 ML IV ONE (00:30)
[2023-01-12] MEDS ORDERED: CefTRIAXone 1 GM/DEXTROSE 50 ML IV ONE (00:30)
[2023-01-12] MEDS ORDERED: ACETAMINOPHEN 1000 MG/ISO-OSM 100 ML IV ONE (00:30)
[2023-01-12 00:47] LABS: BASOPHILS % (AUTO) 0.8 % (0.0-2.0); EOSINOPHILS % (AUTO) 0.2 % (1.0-6.0); HEMATOCRIT 31.5 % (36-46); HEMOGLOBIN 10.4 g/dL (12.0-16.0); LYMPHOCYTES # (AUTO) 0.3 K/uL (1.0-4.8); LYMPHOCYTES % (AUTO) 3.5 % (22.0-44.0); MEAN CORPUSCULAR HEMOGLOBIN 32.6 pg (26.0-34.0); MEAN CORPUSCULAR HGB CONC 33.1 G/dL (31.0-37.0); MEAN CORPUSCULAR VOLUME 99 fL (80-100); MONOCYTES # (AUTO) 0.4 K/uL (0.1-1.0); MONOCYTES % (AUTO) 4.7 % (2.0-9.0); NEUTROPHILS # (AUTO) 8.2 K/uL (1.8-7.7); PLATELET COUNT (AUTO) 136 K/uL (150-450); RED CELL DISTRIBUTION WIDTH 15.1 % (11.5-14.5); WHITE BLOOD COUNT (AUTO) 9.1 K/uL (4.5-11.0)
[2023-01-12 00:48] LABS: NEUTROPHILS % (AUTO) 90.8 % (40.0-70.0)
[2023-01-12 00:50] LABS: ANION GAP 9 mmol/L (8-16); CALCIUM, TOTAL 8.7 mg/dL (8.8-10.5); CARBON DIOXIDE 27 mmol/L (22-29); CHLORIDE 98 mmol/L (98-107); CREATININE 6.02 mg/dL (0.60-1.30); GLOMERULAR FILTR. RATE CALC 7 mL/min (>60); GLUCOSE,RANDOM 139 mg/dL (70-110); POTASSIUM 3.6 mmol/L (3.5-5.1); SODIUM SERUM 134 mmol/L (136-145); UREA NITROGEN, BLOOD 22 mg/dL (7-18)
[2023-01-12 00:52] LABS: COVID AG,FIA SOURCE NASAL SWAB
[2023-01-12 00:56] LABS: ALANINE AMINOTRANSFERASE 15 U/L (12-78); ALBUMIN 2.7 g/dL (3.4-5.0); ALKALINE PHOSPHATASE 100 U/L (46-116); ASPARTATE AMINOTRANSFERASE 25 U/L (15-37); BILIRUBIN,TOTAL 0.3 mg/dL (0.1-1.0); TOTAL PROTEIN, SERUM 6.3 g/dL (6.4-8.2)
[2023-01-12 00:59] LABS: LACTIC ACID 1.7 mmol/L (0.4-2.0)
[2023-01-12 01:00] LABS: INR 1.1 (0.9-1.1)
[2023-01-12 01:06] LABS: TROPONIN I-HIGH SENSITIVITY 106 ng/L (<51)
[2023-01-12 01:11] LABS: INFLUENZA TYPE A NEGATIVE FOR TYPE A (NEGATIVE); INFLUENZA TYPE B NEGATIVE FOR TYPE B (NEGATIVE); SARS-COV2 (COVID) ANTIGEN,FIA Negative (Negative)
[2023-01-12 01:12] LABS: LIPASE 21 U/L (16-77)
[2023-01-12] MEDS ORDERED: ASPIRIN 325 MG TABLET PO ONE (02:00)
[2023-01-12] MEDS ORDERED: VANCOMYCIN 1GM/WATER(PEG/NADA) 200 ML IV ONE (02:15)
[2023-01-12 03:22] LABS: TROPONIN I-HIGH SENSITIVITY 103 ng/L (<51)
[2023-01-12] MEDS ORDERED: *CLINICAL-LEVOFLOXACIN IVPB DOSING CLINICAL ONE (08:15)
[2023-01-12] MEDS ORDERED: ONDANSETRON HCL 4 MG/2 ML VIAL IVP PRN (08:15)
[2023-01-12] MEDS ORDERED: BISACODYL 10 MG RECTAL RECTAL SUPPOSITORY PR PRN (08:15)
[2023-01-12] MEDS ORDERED: LEVOFLOXACIN 750 MG/D5% WATER 150 ML IV ONE (09:00)
[2023-01-12] MEDS: FAMOTIDINE 20 MG TABLET PO SCH (09:52)
[2023-01-12] MEDS: DOCUSATE SODIUM 100 MG CAPSULE PO SCH ×2 (09:53→20:20)
[2023-01-12] MEDS ORDERED: VANCOMYCIN HCL 1.25 GM in DEXTROSE 5%-WATER 250 ML IV ONE (10:00)
[2023-01-12] MEDS: ACETAMINOPHEN 325 MG TABLET PO PRN ×2 (11:02→20:33)
[2023-01-12] MEDS ORDERED: VANCOMYCIN 1GM/WATER(PEG/NADA) 200 ML IV PRN (15:00)
[2023-01-12] MEDS ORDERED: *CLINICAL-CEFEPIME DOSING CLINICAL ONE (16:00)
[2023-01-12] MEDS: HEPARIN SODIUM,PORCINE 5,000 UNITS/ML VIAL SQ SCH (16:16)
[2023-01-12] MEDS ORDERED: IOHEXOL 350 MG/ML 100 ML VIAL ONE (16:57)
[2023-01-12] MEDS ORDERED: SODIUM CHLORIDE 0.9% 100 ML ONE (16:57)
[2023-01-12] MEDS ORDERED: CEFEPIME HCL 2 GM in DEXTROSE 5%-WATER 50 ML IV ONE (17:00)
[2023-01-13] VITALS (13 sets, daily range): BP systolic 101–144; BP diastolic 49–106; PULSE 43–103; RESP 18–20; TEMP 97.8–100.4
[2023-01-13] MEDS: HEPARIN SODIUM,PORCINE 5,000 UNITS/ML VIAL SQ SCH ×3 (01:39→16:00)
[2023-01-13] MEDS: ACETAMINOPHEN 325 MG TABLET PO PRN ×3 (02:07→20:13)
[2023-01-13] MEDS: FAMOTIDINE 20 MG TABLET PO SCH (08:08)
[2023-01-13] MEDS: DOCUSATE SODIUM 100 MG CAPSULE PO SCH ×2 (08:09→20:13)
[2023-01-13 09:01] LABS: CALCIUM, TOTAL 8.7 mg/dL (8.8-10.5); CREATININE 6.92 mg/dL (0.60-1.30); POTASSIUM 3.8 mmol/L (3.5-5.1)
[2023-01-13 09:07] LABS: VANCOMYCIN,RANDOM 13.3 mcg/mL (25.0-50.0)
[2023-01-13] MEDS ORDERED: VANCOMYCIN HCL 1 GM in DEXTROSE 5%-WATER 250 ML IV ONE (10:00)
[2023-01-13] MEDS ORDERED: HEPARIN SODIUM,PORCINE 1,000 UNITS/ML VIAL IVP ONE (12:00)
[2023-01-13 12:21] LABS: GLUCOMETER DEV NAME(LOC) 5N.2C; GLUCOSE,POINT OF CARE 138 MG/DL (70-110)
[2023-01-13] MEDS ORDERED: SODIUM CHLORIDE 0.9% 1,000 ML ONE (15:22)
[2023-01-13] MEDS: SEVELAMER CARBONATE 800 MG TABLET PO SCH (18:00)
[2023-01-13] MEDS: CEFEPIME HCL 1 GM in DEXTROSE 5%-WATER 50 ML IV SCH (18:00)
[2023-01-13] MEDS ORDERED: HEPARIN SODIUM,PORCINE 1,000 UNITS/ML VIAL IVCATH ONE ×2 (19:30)
[2023-01-14] VITALS (12 sets, daily range): BP systolic 95–135; BP diastolic 40–80; PULSE 88–106; RESP 20; TEMP 98–98.8
[2023-01-14] MEDS: HEPARIN SODIUM,PORCINE 5,000 UNITS/ML VIAL SQ SCH ×4 (00:43→23:36)
[2023-01-14] MEDS: FAMOTIDINE 20 MG TABLET PO SCH (08:31)
[2023-01-14] MEDS: DOCUSATE SODIUM 100 MG CAPSULE PO SCH ×2 (08:31→20:36)
[2023-01-14] MEDS: SEVELAMER CARBONATE 800 MG TABLET PO SCH ×3 (08:31→20:36)
[2023-01-14] MEDS ORDERED: SODIUM CHLORIDE 0.9% 2,000 ML ONE (10:04)
[2023-01-14] MEDS: ACETAMINOPHEN 325 MG TABLET PO PRN (12:34)
[2023-01-14] MEDS: LEVOFLOXACIN 500 MG/D5% WATER 100 ML IV SCH (17:09)
[2023-01-14] MEDS ORDERED: HEPARIN SODIUM,PORCINE 1,000 UNITS/ML VIAL IVP ONE (17:11)
[2023-01-14] MEDS: CEFEPIME HCL 1 GM in DEXTROSE 5%-WATER 50 ML IV SCH (20:37)
[2023-01-15 04:15] VITALS: BP 137/66; PULSE 92; RESP 22; TEMP 99.5
[2023-01-15] MEDS: HEPARIN SODIUM,PORCINE 5,000 UNITS/ML VIAL SQ SCH ×3 (08:00→23:42)
[2023-01-15] MEDS: DOCUSATE SODIUM 100 MG CAPSULE PO SCH ×2 (08:54→21:02)
[2023-01-15] MEDS: SEVELAMER CARBONATE 800 MG TABLET PO SCH ×3 (08:54→18:32)
[2023-01-15] MEDS: FAMOTIDINE 20 MG TABLET PO SCH (08:54)
[2023-01-15] MEDS: PHENYLEPHRINE/SHK LV/MIN OIL/PET 57 GM OINTMENT TP SCH (14:00)
[2023-01-15] MEDS: ACETAMINOPHEN 325 MG TABLET PO PRN (15:05)
[2023-01-15] MEDS ORDERED: VANCOMYCIN HCL 1 GM in DEXTROSE 5%-WATER 250 ML IV ONE (16:00)
[2023-01-15 16:11] VITALS: BP 127/68; PULSE 85; RESP 20; TEMP 97.7
[2023-01-15 19:25] VITALS: BP 107/70; PULSE 92; RESP 18; TEMP 98.9
[2023-01-15] MEDS: CEFEPIME HCL 1 GM in DEXTROSE 5%-WATER 50 ML IV SCH (21:50)
[2023-01-16] VITALS (15 sets, daily range): BP systolic 110–155; BP diastolic 28–107; PULSE 65–103; RESP 16–22; TEMP 97–99.2
[2023-01-16] MEDS: ACETAMINOPHEN 325 MG TABLET PO PRN ×2 (05:58→19:54)
[2023-01-16] MEDS ORDERED: HEPARIN SODIUM,PORCINE 1,000 UNITS/ML VIAL IVCATH ONE ×2 (06:15)
[2023-01-16 07:39] LABS: CREATININE 2.57 mg/dL (0.60-1.30); PHOSPHORUS 1.6 mg/dL (2.5-4.9); POTASSIUM 3.5 mmol/L (3.5-5.1)
[2023-01-16] MEDS: SEVELAMER CARBONATE 800 MG TABLET PO SCH ×3 (08:00→17:27)
[2023-01-16] MEDS: HEPARIN SODIUM,PORCINE 5,000 UNITS/ML VIAL SQ SCH ×3 (08:00→23:32)
[2023-01-16] MEDS: DOCUSATE SODIUM 100 MG CAPSULE PO SCH ×2 (09:00→19:53)
[2023-01-16] MEDS: FAMOTIDINE 20 MG TABLET PO SCH (09:00)
[2023-01-16] MEDS: PHENYLEPHRINE/SHK LV/MIN OIL/PET 57 GM OINTMENT TP SCH (09:00)
[2023-01-16] MEDS ORDERED: HEPARIN SODIUM,PORCINE 1,000 UNITS/ML VIAL IVP ONE (12:00)
[2023-01-16] MEDS ORDERED: HEPARIN SODIUM,PORCINE 1,000 UNITS/ML 10 ML VIAL IARTER ONE (12:58)
[2023-01-16] MEDS: LEVOFLOXACIN 500 MG/D5% WATER 100 ML IV SCH (16:42)
[2023-01-17 03:57] VITALS: BP 121/54; PULSE 96; RESP 18; TEMP 98.8
[2023-01-17 06:09] LABS: CREATININE 3.93 mg/dL (0.60-1.30); MAGNESIUM 2.1 mg/dL (1.80-2.40); PHOSPHORUS 2.5 mg/dL (2.5-4.9); POTASSIUM 4.2 mmol/L (3.5-5.1); VANCOMYCIN,RANDOM 16.4 mcg/mL (25.0-50.0)
[2023-01-17] MEDS: DOCUSATE SODIUM 100 MG CAPSULE PO SCH ×2 (08:35→20:06)
[2023-01-17] MEDS: FAMOTIDINE 20 MG TABLET PO SCH (08:35)
[2023-01-17] MEDS: SEVELAMER CARBONATE 800 MG TABLET PO SCH ×3 (08:35→18:17)
[2023-01-17] MEDS: HEPARIN SODIUM,PORCINE 5,000 UNITS/ML VIAL SQ SCH ×3 (08:36→23:32)
[2023-01-17 08:56] VITALS: BP 98/74; PULSE 90; RESP 19; TEMP 98.4
[2023-01-17] MEDS ORDERED: VANCOMYCIN 1GM/WATER(PEG/NADA) 200 ML IV ONE (09:00)
[2023-01-17] MEDS: ACETAMINOPHEN 325 MG TABLET PO PRN (10:18)
[2023-01-17] MEDS: PHENYLEPHRINE/SHK LV/MIN OIL/PET 57 GM OINTMENT TP SCH (10:19)
[2023-01-18 06:22] VITALS: BP 130/74; PULSE 95; RESP 20; TEMP 97.8
[2023-01-18 07:32] LABS: CALCIUM, TOTAL 9.2 mg/dL (8.8-10.5); CREATININE 5.15 mg/dL (0.60-1.30); MAGNESIUM 2.1 mg/dL (1.80-2.40); PHOSPHORUS 2.9 mg/dL (2.5-4.9); POTASSIUM 4.4 mmol/L (3.5-5.1)
[2023-01-18] MEDS: DOCUSATE SODIUM 100 MG CAPSULE PO SCH ×2 (07:58→20:30)
[2023-01-18] MEDS: FAMOTIDINE 20 MG TABLET PO SCH (07:59)
[2023-01-18] MEDS: SEVELAMER CARBONATE 800 MG TABLET PO SCH ×3 (07:59→17:41)
[2023-01-18] MEDS: HEPARIN SODIUM,PORCINE 5,000 UNITS/ML VIAL SQ SCH ×3 (08:01→23:23)
[2023-01-18] MEDS: PHENYLEPHRINE/SHK LV/MIN OIL/PET 57 GM OINTMENT TP SCH (08:01)
[2023-01-18 08:02] VITALS: BP 136/72; PULSE 91; RESP 18; TEMP 99
[2023-01-18 15:50] VITALS: BP 116/71; PULSE 93; RESP 18; TEMP 98
[2023-01-18] MEDS ORDERED: *CLINICAL-LEVOFLOXACIN ORAL DOSING CLINICAL ONE (16:15)
[2023-01-18] MEDS ORDERED: LEVOFLOXACIN 500 MG TABLET PO SCH (17:00)
[2023-01-18] MEDS: ACETAMINOPHEN 325 MG TABLET PO PRN (17:41)
[2023-01-18 19:46] VITALS: BP 147/61; PULSE 97; RESP 18; TEMP 98.3
[2023-01-19] VITALS (10 sets, daily range): BP systolic 102–139; BP diastolic 56–89; PULSE 78–99; RESP 18–20; TEMP 98–99
[2023-01-19 07:19] LABS: VANCOMYCIN,RANDOM 23.3 mcg/mL (25.0-50.0)
[2023-01-19] MEDS: HEPARIN SODIUM,PORCINE 5,000 UNITS/ML VIAL SQ SCH ×3 (08:00→23:08)
[2023-01-19] MEDS: SEVELAMER CARBONATE 800 MG TABLET PO SCH ×3 (09:26→18:00)
[2023-01-19] MEDS: DOCUSATE SODIUM 100 MG CAPSULE PO SCH ×2 (09:26→21:00)
[2023-01-19] MEDS: FAMOTIDINE 20 MG TABLET PO SCH (09:26)
[2023-01-19] MEDS: PHENYLEPHRINE/SHK LV/MIN OIL/PET 57 GM OINTMENT TP SCH (09:30)
[2023-01-19 10:58] LABS: CALCIUM, TOTAL 9.3 mg/dL (8.8-10.5); CREATININE 6.42 mg/dL (0.60-1.30); POTASSIUM 4.4 mmol/L (3.5-5.1)
[2023-01-19] MEDS ORDERED: IODIXANOL 320 MG/ML 50 ML VIAL ONE (15:47)
[2023-01-19] MEDS ORDERED: LIDOCAINE/PF 1% 30 ML VIAL ONE (15:48)
[2023-01-19] MEDS ORDERED: SODIUM BICARBONATE 50 MEQ/50 ML VIAL ONE (15:48)
[2023-01-19] MEDS ORDERED: FentaNYL CITRATE PF 100 MCG/2 ML VIAL ONE (15:50)
[2023-01-19] MEDS ORDERED: MIDAZOLAM HCL 2 MG/2 ML VIAL ONE (15:50)
[2023-01-19] MEDS ORDERED: VANCOMYCIN HCL 500 MG in DEXTROSE 5%-WATER 100 ML IV ONE (16:00)
[2023-01-19] MEDS ORDERED: LIDOCAINE 1%/EPI 1:200,000/PF 10 ML VIAL ONE (16:12)
[2023-01-19] MEDS ORDERED: LIDOCAINE 1%/EPI 1:200,000/PF 30 ML VIAL ONE (16:13)
[2023-01-19] MEDS ORDERED: IODIXANOL 320 MG/ML 50 ML VIAL IVP ONE (16:45)
[2023-01-19] MEDS ORDERED: FentaNYL CITRATE PF 100 MCG/2 ML VIAL IVP ONE (16:45)
[2023-01-19] MEDS ORDERED: MIDAZOLAM HCL 2 MG/2 ML VIAL IVP ONE (16:45)
[2023-01-19] MEDS ORDERED: LIDOCAINE 1% 30 ML/SOD BICARB 8.4% 4 ML SQ ONE (17:00)
[2023-01-19] MEDS ORDERED: SODIUM CHLORIDE 0.9% 1,000 ML ONE ×2 (17:59→18:11)
[2023-01-19] MEDS ORDERED: LEVOFLOXACIN 500 MG TABLET PO SCH (18:00)
[2023-01-19] MEDS: ACETAMINOPHEN 325 MG TABLET PO PRN (20:42)
[2023-01-20 04:36] VITALS: BP 114/55; PULSE 93; RESP 19; TEMP 99
[2023-01-20 06:58] LABS: VANCOMYCIN,RANDOM 25.2 mcg/mL (25.0-50.0)
[2023-01-20] MEDS: SEVELAMER CARBONATE 800 MG TABLET PO SCH ×3 (07:41→17:16)
[2023-01-20] MEDS: FAMOTIDINE 20 MG TABLET PO SCH (07:41)
[2023-01-20] MEDS: DOCUSATE SODIUM 100 MG CAPSULE PO SCH (07:41)
[2023-01-20] MEDS: HEPARIN SODIUM,PORCINE 5,000 UNITS/ML VIAL SQ SCH ×2 (07:41→15:59)
[2023-01-20 10:18] VITALS: BP 130/79; PULSE 106; RESP 20; TEMP 98
[2023-01-20] MEDS: PHENYLEPHRINE/SHK LV/MIN OIL/PET 57 GM OINTMENT TP SCH (11:27)
[2023-01-20] MEDS ORDERED: LEVO-72 PO (12:49)
[2023-01-20 13:06] LABS: CALCIUM, TOTAL 9.3 mg/dL (8.8-10.5); CREATININE 6.41 mg/dL (0.60-1.30); POTASSIUM 4.3 mmol/L (3.5-5.1)
[2023-01-20] MEDS ORDERED: HEPARIN SODIUM,PORCINE 1,000 UNITS/ML VIAL IVP ONE (14:39)
[2023-01-20 14:49] LABS: CALCIUM, TOTAL 9.4 mg/dL (8.8-10.5); CREATININE 6.68 mg/dL (0.60-1.30)
[2023-01-20 14:56] LABS: POTASSIUM 4.4 mmol/L (3.5-5.1)
[2023-01-20] MEDS: ACETAMINOPHEN 325 MG TABLET PO PRN (16:10)
[2023-01-20 16:27] VITALS: BP 120/81; PULSE 100; RESP 20; TEMP 97.3
[2023-01-20] MEDS ORDERED: LEVOFLOXACIN 500 MG TABLET PO SCH (18:00)
== END 2023-01-20 18:20 | disposition home health service (06) | DRG 314 ==
LOC: EMS 23:50 → 6S 01-12 02:17 → 5S 01-12 02:20 → 6S 01-13 13:14
PROVIDERS: ADMIT Internal Medicine; ATTEND Internal Medicine
PROC: 5A1D70Z Performance of Urinary Filtration, Intermittent, Less than 6 Hours Per Day (ICD-10-PCS; principal; 2023-01-13)
PROC: 5A1D70Z Performance of Urinary Filtration, Intermittent, Less than 6 Hours Per Day (ICD-10-PCS; 2023-01-14)
PROC: 5A1D70Z Performance of Urinary Filtration, Intermittent, Less than 6 Hours Per Day (ICD-10-PCS; 2023-01-16)
PROC: 0JPVXXZ Removal of Tunneled Vascular Access Device from Upper Extremity Subcutaneous Tissue and Fascia, External Approach (ICD-10-PCS; 2023-01-16)
PROC: 5A1D70Z Performance of Urinary Filtration, Intermittent, Less than 6 Hours Per Day (ICD-10-PCS; 2023-01-19)
PROC: 0JH63XZ Insertion of Tunneled Vascular Access Device into Chest Subcutaneous Tissue and Fascia, Percutaneous Approach (ICD-10-PCS; 2023-01-19)
PROC: 02HV33Z Insertion of Infusion Device into Superior Vena Cava, Percutaneous Approach (ICD-10-PCS; 2023-01-19)
PROC: B5181ZA Fluoroscopy of Superior Vena Cava using Low Osmolar Contrast, Guidance (ICD-10-PCS; 2023-01-19)
PROC: B548ZZA Ultrasonography of Superior Vena Cava, Guidance (ICD-10-PCS; 2023-01-19)
DX: T80.211A Bloodstream infection due to central venous catheter, initial encounter (principal); A41.9 Sepsis, unspecified organism; N18.6 End stage renal disease; R53.2 Functional quadriplegia; E44.0 Moderate protein-calorie malnutrition; I13.2 Hypertensive heart and chronic kidney disease with heart failure and with stage 5 chronic kidney disease, or end stage renal disease; Z68.42 Body mass index [BMI] 45.0-49.9, adult; J96.10 Chronic respiratory failure, unspecified whether with hypoxia or hypercapnia; Z20.822 Contact with and (suspected) exposure to COVID-19; E78.5 Hyperlipidemia, unspecified; D63.1 Anemia in chronic kidney disease; J44.9 Chronic obstructive pulmonary disease, unspecified; Y83.8 Other surgical procedures as the cause of abnormal reaction of the patient, or of later complication, without mention of misadventure at the time of the procedure; R41.89 Other symptoms and signs involving cognitive functions and awareness; E66.01 Morbid (severe) obesity due to excess calories; G47.33 Obstructive sleep apnea (adult) (pediatric); I50.9 Heart failure, unspecified; Z95.3 Presence of xenogenic heart valve; Z99.81 Dependence on supplemental oxygen; Z90.710 Acquired absence of both cervix and uterus; Z99.2 Dependence on renal dialysis; Z79.82 Long term (current) use of aspirin; Z79.899 Other long term (current) drug therapy; Y92.89 Other specified places as the place of occurrence of the external cause
CPT/HCPCS: 36561; 71045; 74177; 76937; 80048; 80053; 80202; 82962; 83605; 83690; 83735; 84100; 84145; 84484; 85025; 85610; 87040; 87077; 87205; 87340; 87804; 90935; 93005; 93306; 97162; 97163; 97165; 97535; 99291; J0131; J0692; J0696; J1644; J1956; J2250; J3010; J3370; J3490; J7030; J7050; J7060; Q9967; 36415-L1; 36415-TC

== ENCOUNTER 2023-10-25 11:22 | Emergency (ER) | payer MEDICARE, OTHER ==
[~2023-10-25] VITALS: Ht 157.5 cm; Wt 119.5 kg
[~2023-10-25 11:22] MED LIST changes: -ALLO100T PO; -AMLO10TA55 PO; -FOLI0.8T2 PO; +FOLI0.8T54 PO; +LEVO-72 PO; -METO-558 PO; -SEVE800T17 PO; +SEVE800T38 PO; -TRAM-559 PO
[2023-10-25 11:41] VITALS: TEMP 98.4
[2023-10-25 12:45] LABS: BASOPHILS % (AUTO) 0.8 % (0.0-2.0); EOSINOPHILS % (AUTO) 3.7 % (1.0-6.0); HEMATOCRIT 32.2 % (36-46); HEMOGLOBIN 10.6 g/dL (12.0-16.0); LYMPHOCYTES # (AUTO) 0.6 K/uL (1.0-4.8); MEAN CORPUSCULAR HEMOGLOBIN 31.8 pg (26.0-34.0); MEAN CORPUSCULAR HGB CONC 32.9 G/dL (31.0-37.0); MEAN CORPUSCULAR VOLUME 97 fL (80-100); MONOCYTES # (AUTO) 0.5 K/uL (0.1-1.0); MONOCYTES % (AUTO) 7.7 % (2.0-9.0); NEUTROPHILS # (AUTO) 4.6 K/uL (1.8-7.7); NEUTROPHILS % (AUTO) 77.8 % (40.0-70.0); PLATELET COUNT (AUTO) 158 K/uL (150-450); RED BLOOD CELL COUNT(AUTO) 3.33 MIL/uL (4.00-5.20); RED CELL DISTRIBUTION WIDTH 15.6 % (11.5-14.5); WHITE BLOOD COUNT (AUTO) 5.9 K/uL (4.5-11.0)
[2023-10-25] MEDS ORDERED: DEXTROSE 50%-WATER 25 GM/50 ML SYRINGE IVP PRN (12:45)
[2023-10-25] MEDS ORDERED: INSULIN LISPRO 100 UNITS/ML SQ PRN (12:45)
[2023-10-25 12:54] LABS: CALCIUM, TOTAL 8.4 mg/dL (8.8-10.5); CREATININE 5.16 mg/dL (0.60-1.30)
[2023-10-25 12:59] LABS: CREATINE KINASE, TOTAL ONLY 41 U/L (26-192)
[2023-10-25 13:00] LABS: B-TYPE NATRIURETIC PEPTIDE 457 pg/mL (0-100)
[2023-10-25 13:02] LABS: PROTHROMBIN TIME 10.7 SEC (9.4-11.6)
[2023-10-25 13:03] LABS: TROPONIN I-HIGH SENSITIVITY 18 ng/L (<51)
[2023-10-25 13:15] LABS: THYROID STIMULATING HORMONE 3.41 uIU/mL (0.36-3.74)
[2023-10-25] MEDS: MECLIZINE HCL 25 MG TABLET PO ONE (13:48)
[2023-10-25] MEDS: ACETAMINOPHEN 500 MG TABLET PO ONE (13:48)
[2023-10-25] MEDS: ONDANSETRON HCL 4 MG/2 ML VIAL IVP ONE (13:48)
[2023-10-25] MEDS: NEOMYCIN/POLYMYXIN B/HYDROCORT 10 ML OTIC SUSPENSION AD ONE (13:49)
[2023-10-25] MEDS ORDERED: ACET-66 PO (14:07)
[2023-10-25] MEDS ORDERED: ONDA-104 PO (14:07)
[2023-10-25] MEDS ORDERED: MECL-134 PO (14:07)
[2023-10-25] MEDS ORDERED: BACTDSB PO (15:14)
[2023-10-25] MEDS: CefTRIAXone SODIUM 1 GM/VIAL IM ONE (15:26)
[2023-10-25] MEDS: LIDOCAINE/PF 1% 2 ML VIAL IM ONE (15:26)
[2023-10-25 15:51] VITALS: BP 138/61; PULSE 87; RESP 18
== END 2023-10-25 16:56 | disposition home or self-care (01) ==
LOC: EMS 12:04
DX: H60.91 Unspecified otitis externa, right ear (principal); H66.91 Otitis media, unspecified, right ear; H70.91 Unspecified mastoiditis, right ear; I13.2 Hypertensive heart and chronic kidney disease with heart failure and with stage 5 chronic kidney disease, or end stage renal disease; N18.6 End stage renal disease; Z90.710 Acquired absence of both cervix and uterus
CPT/HCPCS: 99285; 96374; 70450; 71045; 80048; 82550; 83880; 84443; 84484; 85025; 85610; 85730; 93005; 96372; J0696; J3490; J2405; 36415-L1; 36415-TC

== ENCOUNTER 2023-12-01 11:47 | Emergency (ER) | payer MEDICARE, OTHER ==
[~2023-12-01] VITALS: Ht 142.2 cm; Wt 89.0 kg
[~2023-12-01 11:47] MED LIST changes: +ACET-66 PO; +BACTDSB PO; +MECL-134 PO; +ONDA-104 PO
[2023-12-01 11:54] VITALS: TEMP 98.5
[2023-12-01] MEDS ORDERED: METO50 PO (12:06)
[2023-12-01] MEDS ORDERED: OS500 PO (12:06)
[2023-12-01] MEDS ORDERED: ALLO-97 PO (12:06)
[2023-12-01] MEDS ORDERED: HYDR50TA36 PO (12:06)
[2023-12-01] MEDS ORDERED: POTA8TAB71 PO (12:06)
[2023-12-01] MEDS ORDERED: LEVO-72 PO (12:06)
[2023-12-01] MEDS ORDERED: GABA-1216 PO (12:38)
[2023-12-01] MEDS: GABAPENTIN 100 MG CAPSULE PO ONE (12:52)
[2023-12-01] MEDS: ACETAMINOPHEN 325 MG TABLET PO ONE (12:52)
[2023-12-01 13:37] VITALS: BP 128/80; PULSE 78; RESP 16
== END 2023-12-01 13:38 | disposition home or self-care (01) ==
LOC: EMS 11:47
DX: G50.0 Trigeminal neuralgia (principal); J44.9 Chronic obstructive pulmonary disease, unspecified; I11.0 Hypertensive heart disease with heart failure; I50.9 Heart failure, unspecified; Z90.710 Acquired absence of both cervix and uterus
CPT/HCPCS: 99283

== ENCOUNTER 2025-01-30 01:20 | Emergency (ER) | payer MEDICARE, OTHER ==
[~2025-01-30] VITALS: Ht 157.5 cm; Wt 103.2 kg
[~2025-01-30 01:20] MED LIST changes: +-Lidoderm Patch Note- MISC; +ACET-3385 PO; -ACET-66 PO; +ALLO-97 PO; -ASPI-1450 PO; +ATOR40TA28 PO; -BACTDSB PO; +CARV3 PO; +CARV3.1262 PO; +DICL100G60 TP; +DOCU-385 PO; -FOLI0.8T54 PO; -GABA-1181 PO; +GABA-1216 PO; +HYDR50TA36 PO; -LEVO-72 PO; -MECL-134 PO; +METO50 PO; -NYST15CR41 TP; -OMEP20CA13 PO; -ONDA-104 PO; +OS500 PO; -ROPI PO; -SENN-376 PO; -SEVE800T38 PO; -VENL-66 PO
[2025-01-30 01:36] VITALS: TEMP 98.6
[2025-01-30 02:06] VITALS: BP 159/100; PULSE 71; RESP 16; O2SAT 96
[2025-01-30 02:09] LABS: PLATELET COUNT (AUTO) 145 K/uL (150-450); RED BLOOD CELL COUNT(AUTO) 3.83 MIL/uL (4.00-5.20); RED CELL DISTRIBUTION WIDTH 16.5 % (11.5-14.5); WHITE BLOOD COUNT (AUTO) 5.4 K/uL (4.5-11.0)
[2025-01-30 02:18] LABS: CALCIUM, TOTAL 8.8 mg/dL (8.8-10.5); CREATININE 4.70 mg/dL (0.60-1.30); GLOMERULAR FILTR. RATE CALC 9 mL/min (>60); GLUCOSE,RANDOM 91 mg/dL (70-110); SODIUM SERUM 137 mmol/L (136-145); UREA NITROGEN, BLOOD 38 mg/dL (7-18)
[2025-01-30 02:29] LABS: TROPONIN I-HIGH SENSITIVITY 27 ng/L (<51)
[2025-01-30] MEDS: METOCLOPRAMIDE HCL 10 MG TABLET PO ONE (02:34)
[2025-01-30] MEDS: ACETAMINOPHEN 500 MG TABLET PO ONE (02:34)
[2025-01-30 02:40] LABS: ASPARTATE AMINOTRANSFERASE 15.0 U/L (15-37); TOTAL PROTEIN, SERUM 7.5 g/dL (6.4-8.2)
[2025-01-30] MEDS ORDERED: METO5TAB95 PO (03:18)
== END 2025-01-30 04:39 | disposition home or self-care (01) ==
LOC: EMS 01:51
DX: J06.9 Acute upper respiratory infection, unspecified (principal); R05.9 Cough, unspecified; R42 Dizziness and giddiness; R11.2 Nausea with vomiting, unspecified; B97.89 Other viral agents as the cause of diseases classified elsewhere; I13.2 Hypertensive heart and chronic kidney disease with heart failure and with stage 5 chronic kidney disease, or end stage renal disease; I50.9 Heart failure, unspecified; N18.6 End stage renal disease; J44.9 Chronic obstructive pulmonary disease, unspecified; Z99.2 Dependence on renal dialysis; Z90.710 Acquired absence of both cervix and uterus; Z79.1 Long term (current) use of non-steroidal anti-inflammatories (NSAID); Z79.899 Other long term (current) drug therapy
CPT/HCPCS: 71045; 80048; 80076; 83880; 84484; 85025; 93005; 99285; 36415-L1; 36415-TC